=== PATIENT | male | born 1960 | race Caucasian/White ===

== ENCOUNTER 2024-05-01 19:30 | Inpatient (IN) | payer MEDICAID ==
[~2024-05-01] VITALS: Ht 172.7 cm; Wt 82.1 kg
[2024-05-02] MEDS ORDERED: FOLIC ACID 1 MG, THIAMINE HCL 100 MG, MVI, ADULT NO.1 10 ML in DEXTROSE 5% WATER 1,000 ML IV ONE (03:00)
[2024-05-02] MEDS: LORAZEPAM 2MG/ML INJ IV ONE (03:08)
[2024-05-02 03:11] LABS: BASOPHILS % 0.3 % (0.0-2.0); EOSINOPHILS % 0.1 % (0.0-5.0); HEMATOCRIT. 41.7 % (42.0-52.0); HEMOGLOBIN. 13.8 g/dL (14.0-18.0); LYMPHOCYTES % 11.7 % (20.0-50.0); MEAN CORPUSCULAR HEMOGLOBIN 31.8 pg (28.0-32.0); MEAN CORPUSCULAR HGB CONC 33.1 g/dL (31.0-37.0); MEAN CORPUSCULAR VOLUME 96.1 fL (80.0-94.0); MEAN PLATELET VOLUME 8.1 fl (7.4-10.4); MONOCYTES % 8.6 % (2.0-8.0); NEUTROPHILS % 79.3 % (40.0-76.0); PLATELET 303 x1000/uL (130-400); RED BLOOD CELL COUNT 4.34 mill/uL (4.7-6.1); RED CELL DISTRIBUTION WIDTH 15.9 % (11.6-14.6); WHITE BLOOD COUNT 11.6 x1000/uL (4.5-11.0)
[2024-05-02] MEDS: MAGNESIUM 2 G PREMIX 50 ML IV ONE (03:14)
[2024-05-02 03:20] LABS: CARBON DIOXIDE 27 mEq/L (21-32); CHLORIDE 96 mEq/L (98-107); POTASSIUM 3.7 mEq/L (3.5-5.1); SODIUM 135 mEq/L (136-145)
[2024-05-02 03:21] LABS: CALCIUM 10.1 mg/dL (8.7-10.4)
[2024-05-02 03:25] LABS: CREATININE 1.1 mg/dL (0.6-1.3)
[2024-05-02 03:26] LABS: ETHANOL BLOOD 64 mg/dL (<10); GLUCOSE 275 mg/dL (70-105); LACTIC ACID 3.1 mmol/L (0.4-2.0); UREA NITROGEN BLOOD 18 mg/dL (9-23)
[2024-05-02 03:27] LABS: ALANINE AMINOTRANSFERASE 63 IU/L (10-49); ALBUMIN 4.3 g/dL (3.2-4.8); ASPARTATE AMINOTRANSFERASE 80 IU/L (<34); TROPONIN I HIGH SENSITIVITY 44 ng/L (3.0-53)
[2024-05-02 03:28] LABS: BILIRUBIN DIRECT 0.4 mg/dL (<=3.0); BILIRUBIN TOTAL 1.1 mg/dL (0.1-1.0)
[2024-05-02 03:30] LABS: T4 FREE 1.31 ng/dL (0.89-1.76); THYROID STIMULATING HORMONE 1.23 uIU/mL (0.55-4.78)
[2024-05-02] MEDS: FOLIC ACID 1 MG, THIAMINE HCL 100 MG, MVI, ADULT NO.1 10 ML in DEXTROSE 5% WATER 1,000 ML IV ONE (03:41)
[2024-05-02] MEDS ORDERED: CLONIDINE 0.1MG TABLET PO PRN (05:30)
[2024-05-02] MEDS ORDERED: LORAZEPAM 2MG/ML INJ IV PRN (05:30)
[2024-05-02] MEDS ORDERED: ACETAMINOPHEN 325MG TABLET PO PRN (05:30)
[2024-05-02] MEDS ORDERED: DEXTROSE 50% WATER 50ML SYRINGE IV PRN (05:30)
[2024-05-02] MEDS ORDERED: IPRATROPIUM/ALBUTEROL 0.5-3(2.5)MG/3ML NEB HHN PRN (05:30)
[2024-05-02] MEDS: CHLORDIAZEPOXIDE 25MG CAPSULE PO SCH (05:52)
[2024-05-02] MEDS: AMLODIPINE 10MG TABLET PO SCH (06:08)
[2024-05-02 06:20] LABS: TROPONIN I HIGH SENSITIVITY 41 ng/L (3.0-53)
[2024-05-02] MEDS: BLOOD SUGAR DIAGNOSTIC STRIP TEST SCH (08:49)
[2024-05-02] MEDS: ENOXAPARIN 40MG/0.4ML SYR SUBCUT SCH (10:05)
[2024-05-02] MEDS: FOLIC ACID 1MG TABLET PO SCH (10:05)
[2024-05-02] MEDS: THIAMINE HCL 100MG TABLET PO SCH (10:06)
[2024-05-02] MEDS: PANTOPRAZOLE SODIUM 40 MG/VIAL IV SCH (10:06)
[2024-05-02] MEDS: INSULIN LISPRO 100 UNITS/ML SUBCUT SCH (10:59)
[2024-05-02] MEDS: DILTIAZEM HCL 5MG/ML 5ML VIAL IV NR (11:53)
[2024-05-02 14:12] LABS: CARBON DIOXIDE 31 mEq/L (21-32); CHLORIDE 98 mEq/L (98-107); POTASSIUM 3.9 mEq/L (3.5-5.1); SODIUM 136 mEq/L (136-145)
[2024-05-02 14:13] LABS: CALCIUM 10.2 mg/dL (8.7-10.4)
[2024-05-02 14:17] LABS: CREATININE 0.8 mg/dL (0.6-1.3)
[2024-05-02 14:18] LABS: TROPONIN I HIGH SENSITIVITY 43 ng/L (3.0-53); UREA NITROGEN BLOOD 12 mg/dL (9-23)
[2024-05-02 14:19] LABS: PHOSPHORUS 2.2 mg/dL (2.5-4.9)
[2024-05-02 14:34] LABS: GLUCOSE 109 mg/dL (70-105)
[2024-05-02 16:00] VITALS: BP 129/76; PULSE 80; RESP 20; TEMP 36.33624; O2SAT 95
[2024-05-02 20:00] VITALS: BP 120/80; PULSE 77; RESP 18; TEMP 36.28068; O2SAT 98
[2024-05-02] MEDS: SODIUM PHOSPHATE IV NR (20:24)
[2024-05-02] MEDS: WATER IV NR (20:24)
[2024-05-02] MEDS: DEXT 5% IV NR (20:24)
[2024-05-02 20:32] VITALS: BP 156/96; PULSE 113; RESP 20; TEMP 36.1956
[2024-05-02 22:29] LABS: HEPATITIS B SURFACE ANTIGEN NEGATIVE (Negative)
[2024-05-02 22:50] LABS: HEPATITIS C AB NON REACTIVE (Neg) (Negative)
[2024-05-03] VITALS: BP 93/63; PULSE 77; RESP 20; TEMP 36.55848; O2SAT 97
[2024-05-03 04:00] VITALS: BP 117/68; PULSE 86; RESP 16; TEMP 36.22512; O2SAT 99
[2024-05-03 07:17] LABS: CHLORIDE 97 mEq/L (98-107); POTASSIUM 3.3 mEq/L (3.5-5.1); SODIUM 135 mEq/L (136-145)
[2024-05-03 07:18] LABS: CALCIUM 10.2 mg/dL (8.7-10.4); CARBON DIOXIDE 31 mEq/L (21-32)
[2024-05-03 07:23] LABS: GLUCOSE 162 mg/dL (70-105); UREA NITROGEN BLOOD 15 mg/dL (9-23)
[2024-05-03 07:25] LABS: PHOSPHORUS 2.6 mg/dL (2.5-4.9)
[2024-05-03 08:00] VITALS: BP 136/68; PULSE 101; RESP 18; TEMP 36.28068; O2SAT 97
[2024-05-03 08:20] LABS: HEMATOCRIT 37.6 % (42.0-52.0); HEMOGLOBIN 12.6 g/dL (14.0-18.0); MEAN CORPUSCULAR HEMOGLOBIN 32.4 pg (28.0-32.0); MEAN CORPUSCULAR HGB CONC 33.4 g/dL (31.0-37.0); MEAN CORPUSCULAR VOLUME 97.1 fL (80.0-94.0); PLATELET 263 x1000/uL (130-400); RED BLOOD CELL COUNT 3.88 mill/uL (4.7-6.1); RED CELL DISTRIBUTION WIDTH 15.6 % (11.6-14.6); WHITE BLOOD COUNT 7.8 x1000/uL (4.5-11.0)
[2024-05-03] MEDS: MAGNESIUM 2 G PREMIX 50 ML IV NR (09:53)
[2024-05-03] MEDS: POTASSIUM CHLORIDE 20MEQ TABLET SR PO NR (11:32)
[2024-05-03 12:00] VITALS: BP 98/63; PULSE 78; RESP 16; TEMP 36.16956; O2SAT 98
[2024-05-03] MEDS: MAGNESIUM OXIDE 400MG TABLET PO SCH (15:55)
[2024-05-03 16:00] VITALS: BP 123/79; PULSE 88; RESP 18; TEMP 36.44736; O2SAT 97
[2024-05-04 07:45] LABS: CHLORIDE 99 mEq/L (98-107); POTASSIUM 3.6 mEq/L (3.5-5.1); SODIUM 135 mEq/L (136-145)
[2024-05-04 07:46] LABS: CARBON DIOXIDE 28 mEq/L (21-32)
[2024-05-04 07:49] LABS: BASOPHILS % 0.7 % (0.0-2.0); EOSINOPHILS % 1.1 % (0.0-5.0); HEMATOCRIT. 35.6 % (42.0-52.0); LYMPHOCYTES % 21.4 % (20.0-50.0); MEAN CORPUSCULAR HEMOGLOBIN 32.8 pg (28.0-32.0); MEAN CORPUSCULAR HGB CONC 33.6 g/dL (31.0-37.0); MEAN CORPUSCULAR VOLUME 97.6 fL (80.0-94.0); MEAN PLATELET VOLUME 8.8 fl (7.4-10.4); MONOCYTES % 12.7 % (2.0-8.0); NEUTROPHILS % 64.1 % (40.0-76.0); PLATELET 233 x1000/uL (130-400); RED BLOOD CELL COUNT 3.65 mill/uL (4.7-6.1); RED CELL DISTRIBUTION WIDTH 15.6 % (11.6-14.6); WHITE BLOOD COUNT 5.8 x1000/uL (4.5-11.0)
[2024-05-04 07:51] LABS: GLUCOSE 211 mg/dL (70-105); UREA NITROGEN BLOOD 12 mg/dL (9-23)
[2024-05-04 07:53] LABS: PHOSPHORUS 2.4 mg/dL (2.5-4.9)
[2024-05-04 12:00] VITALS: BP 130/76; PULSE 78; RESP 18; TEMP 36.114; O2SAT 98
[2024-05-04 16:00] VITALS: BP 150/4; PULSE 80; RESP 18; TEMP 36.6696; O2SAT 98
[2024-05-04] MEDS ORDERED: MAGNESIUM 2 G PREMIX 50 ML IV NR (16:30)
[2024-05-04] MEDS: APIXABAN 5 MG TABLET PO SCH (21:22)
[2024-05-05 08:00] VITALS: BP 120/91; PULSE 84; RESP 17; TEMP 36.55848; O2SAT 97
[2024-05-05] MEDS: SODIUM PHOSPHATE 30 MMOL in SODIUM CHLORIDE 0.9% 490 ML IV NR (14:33)
[2024-05-05] MEDS: MAGNESIUM 2 G PREMIX 50 ML IV NR (14:34)
[2024-05-05 16:48] VITALS: BP 120/91; PULSE 78; TEMP 97.3; O2SAT 97
== END 2024-05-05 16:00 | disposition home or self-care (01) | DRG 52 ==
LOC: ER 19:30 → 7WST 05-02 04:48 → EDBEDREQSVC 05-02 08:04
PROVIDERS: ADMIT Hospitalist; ATTEND Hospitalist
DX: G92.8 Other toxic encephalopathy (principal); E46 Unspecified protein-calorie malnutrition; E87.20 Acidosis, unspecified; E83.39 Other disorders of phosphorus metabolism; E88.09 Other disorders of plasma-protein metabolism, not elsewhere classified; Q21.12 Patent foramen ovale; I48.20 Chronic atrial fibrillation, unspecified; I16.0 Hypertensive urgency; F10.139 Alcohol abuse with withdrawal, unspecified; F10.129 Alcohol abuse with intoxication, unspecified; E83.42 Hypomagnesemia; E87.6 Hypokalemia; D53.9 Nutritional anemia, unspecified; F17.200 Nicotine dependence, unspecified, uncomplicated; Y90.3 Blood alcohol level of 60-79 mg/100 ml; R73.03 Prediabetes; Z59.01 Sheltered homelessness; Z68.27 Body mass index [BMI] 27.0-27.9, adult
CPT/HCPCS: 36415; 71045; 80048; 80076; 80320; 82962; 83036; 83605; 83735; 84100; 84439; 84443; 84484; 85025; 85027; 86705; 87340; 93005; 93306; 97166; 99291; J1650; J1815; J2060; J2470; J3411; J3475; J3490; J7040; J7060; J7070; G0480